=== PATIENT | male | born 1995 | race Caucasian/White ===

== ENCOUNTER 2017-09-13 23:56 | Emergency (ER) | payer BC ==
[~2017-09-13] VITALS: Ht 182.9 cm; Wt 76.6 kg
[2017-09-13 23:58] VITALS: TEMP 98
[2017-09-14] MEDS ORDERED: EPIPEN 2-PAK1 MG/ML IM (02:15)
[2017-09-14 02:30] VITALS: BP 122/71; PULSE 93
== END 2017-09-14 02:39 | disposition home or self-care (01) ==
LOC: COL.ER 23:56
DX: T78.05XA Anaphylactic reaction due to tree nuts and seeds, initial encounter (principal)
CPT/HCPCS: J0171; J1200; J2930; J7030; J7512